=== PATIENT | male | born 1995 ===

== ENCOUNTER 2022-05-21 20:47 | Emergency (ER) | payer SELFPAY ==
[~2022-05-21] VITALS: Ht 165.1 cm; Wt 75.0 kg
[2022-05-21 21:12] VITALS: BP 104/86
== END 2022-05-22 02:40 | disposition left against medical advice (07) ==
LOC: ER 20:48
DX: M79.652 Pain in left thigh (principal); Z53.21 Procedure and treatment not carried out due to patient leaving prior to being seen by health care provider